=== PATIENT | female | born 1985 | race American Indian/Alaskan Native ===

== ENCOUNTER 2017-06-24 02:41 | Emergency (ER) | payer OTHER ==
--- NOTE | 2017-06-24 02:59 | ED PDOC ---
Arrival/HPI - General Time Seen by Provider: 06/24/17 02:50 Historian: Patient, Spouse, EMS - History of Present Illness Narrative History of Present Illness (Text): 06/24/17 02:59 Tiny Damian is a 31 year old female who presents to the Emergency department brought in by EMS for right ankle pain status post injury. per , patient was at bar drinking alcohol with friends tonight when she fell and twisted her right ankle. states he found patient on the floor complaining of right ankle pain. Limited HPI and ROS secondary to patient's intoxication. Time/Duration: Other (tonight) Symptom Onset: Sudden Symptom Course: Unchanged Activities at Onset: Light Context: Other (Bar) Past Medical History - Provider Review Nursing Documentation Reviewed: Yes Family/Social History - Physician Review Nursing Documentation Reviewed: Yes Family/Social History: Unknown Family HX Allergies/Home Meds Allergies/Adverse Reactions: Allergies No Known Allergies Allergy (Unverified 06/24/17 03:01) Home Medications: Home Meds Medication Instructions Recorded Confirmed No Known Home Med 06/24/17 06/24/17 Review of Systems - Review of Systems Systems not reviewed;Unavailable: Intoxicated Musculoskeletal: Arthralgias (+right ankle pain) Physical Exam Vital Signs Reviewed: Yes Vital Signs Pulse Resp BP Pulse Ox 06/24/17 03:01 102 H 18 121/102 H 99 Temperature: Afebrile Blood Pressure: Normal Pulse: Regular Respiratory Rate: Normal Appearance: Positive for: Well-Appearing, Comfortable Pain Distress: None Mental Status: Positive for: Alert and Oriented X 3 - Systems Exam Head: Present: Atraumatic, Normocephalic Pupils: Present: PERRL Extroacular Muscles: Present: EOMI Conjunctiva: Present: Normal Mouth: Present: Moist Mucous Membranes Neck: Present: Normal Range of Motion Respiratory/Chest: Present: Clear to Auscultation, Good Air Exchange. No: Respiratory Distress, Accessory Muscle Use Cardiovascular: Present: Regular Rate and Rhythm, Normal S1, S2. No: Murmurs Abdomen: Present: Normal Bowel Sounds. No: Tenderness, Distention, Peritoneal Signs Back: Present: Normal Inspection Upper Extremity: Present: Normal Inspection. No: Cyanosis, Edema Lower Extremity: Present: Tenderness (Tenderness over right lateral malleolus). No: Edema Neurological: Present: GCS=15, CN II-XII Intact, Speech Normal Skin: Present: Warm, Dry, Normal Color. No: Rashes Psychiatric: Present: Alert, Oriented x 3, Intoxicated Medical Decision Making ED Course and Treatment: 06/24/17 02:59 Impression: 31 year old female brought in for right ankle pain. Differential Diagnosis included but are not limited to: sprain vs. fracture Plan: -- XR Right Ankle -- Reassess and disposition Progress Notes: 06/24/17 03:53 Reviewed radiology, XR Right Ankle shows distal fibular fracture. 06/24/17 04:24 On reevaluation, the patient well-appearing, is in no acute distress. I have discussed the results and plan with the patient and spouse, who expresses understanding. Patient is stable for discharge. Patient and spouse were instructed to follow up with physician/clinic in 1-2 days or return if symptoms persist/worsen or new concerning symptoms arise. - RAD Interpretation Radiology Orders: 06/24/17 03:01 ANKLE RIGHT 3 VIEWS ROUTINE [RAD] Stat [employer]: ED Physician - Scribe Statement The provider has reviewed the documentation as recorded by the Scribkimberlee Arreguin All medical record entries made by the Scribe were at my direction and personally dictated by me. I have reviewed the chart and agree that the record accurately reflects my personal performance of the history, physical exam, medical decision making, and the department course for this patient. I have also personally directed, reviewed, and agree with the discharge instructions and disposition. Disposition/Present on Arrival - Present on Arrival Any Indicators Present on Arrival: No - Disposition Have Diagnosis and Disposition been Completed?: Yes Diagnosis: Closed fibular fracture Disposition: HOME/ ROUTINE Disposition Time: 04:24 Patient Plan: Discharge Patient Problems: Current Active Problems Problem Status Onset Closed fibular fracture Acute Condition: STABLE Discharge Instructions (ExitCare): Ankle Fracture (ED) Additional Instructions: Maintain splint/use crutches/no weight bearing on the affected area/advil as directed/follow up with the orthopedist this week Referrals: Jay Nelson MD [Staff Provider] - Follow up with primary [facility] [Outside] - Follow up with primary
[2017-06-24 03:02] VITALS: BP 121/102; RESP 18; O2SAT 99
[2017-06-24 05:37] VITALS: PULSE 99
--- NOTE | 2017-06-24 08:29 | RAD ---
PROCEDURE: Right Ankle Radiographs. HISTORY: injury COMPARISON: None FINDINGS: BONES: There is a minimally displaced oblique fracture through the distal fibula above the level of the ankle joint. JOINTS: Normal. No osteoarthritis. Ankle mortise maintained. Talar dome intact SOFT TISSUES: Normal. OTHER FINDINGS: None. IMPRESSION: There is a minimally displaced oblique fracture through the distal fibula above the level of the ankle joint.
== END 2017-06-24 05:47 | disposition home or self-care (01) ==
LOC: ED 02:41
DX: S82.831A Other fracture of upper and lower end of right fibula, initial encounter for closed fracture (principal); W19.XXXA Unspecified fall, initial encounter; Y92.89 Other specified places as the place of occurrence of the external cause